=== PATIENT | male | born 1995 | race Hispanic/Latino ===

== ENCOUNTER 2021-02-27 17:14 | Inpatient (IN) | payer OTHER, SELFPAY ==
[2021-02-27 17:51] LABS: Urine Blood Trace-lysed (Negative); Urine Glucose Negative (Negative); Urine Protein Negative (Negative); Urine Specific Gravity <=1.005 (1.005-1.030); Urine pH 5.5 (5.0-7.0)
[2021-02-27] MEDS ORDERED: MORPHINE 2 MG/ML SYR ONE (17:52)
[2021-02-27] MEDS ORDERED: NA CHLORIDE 0.9% 1,000 ML ONE ×3 (17:52→19:08)
[2021-02-27] MEDS ORDERED: ONDANSETRON 4 MG/2 ML VIAL ONE ×2 (17:52→22:03)
[2021-02-27 18:05] LABS: Barbiturates NEGATIVE (NEGATIVE); Benzodiazepines NEGATIVE (NEGATIVE); Cocaine NEGATIVE (NEGATIVE); METHAMPHETAM NEGATIVE (NEGATIVE); Methadone NEGATIVE (NEGATIVE); Opiates NEGATIVE (NEGATIVE); Phencyclidine NEGATIVE (NEGATIVE); THC Cannibis NEGATIVE (NEGATIVE)
[2021-02-27] MEDS ORDERED: ACETAMINOPHEN 500 MG TAB ONE (18:15)
[2021-02-27] MEDS ORDERED: ACETAMINOPHEN 160 MG/5 ML UCUP ONE (18:18)
--- NOTE | 2021-02-27 18:25 | RAD REPORT ---
EXAM DESCRIPTION: CTAbdomen Pelvis W Contrast - 02/27/2021 6:18 pm CLINICAL HISTORY: Abdominal pain. Abd pain;Nausea / vomiting COMPARISON: No comparisons TECHNIQUE: Biphasic CT imaging of the abdomen and pelvis was performed with 100 ml non-ionic IV cont rast. All CT scans are performed using dose optimization technique as appropriate and may include automated exposure control or mA/KV adjustment according to patient size. FINDINGS: The lung bases are clear. The liver, spleen, pancreas, adrenal glands and kidneys are within normal limits. The appendix is dilated to 15 mm and contains an appendicolith. There is moderate surrounding inflamm ation. Tiny air bubbles are seen external to the appendix lumen. There is inflammatory changes seen i n the abdomen with small bowel ileus present. No evidence of significant lymphadenopathy. No suspicious bony findings. IMPRESSION: Perforated acute appendicitis is suspected.
[2021-02-27 18:40] LABS: Absolute Lymphocytes (CBC) 0.5 K/uL (0.7-4.9); Basophils % 0.3 % (0-1.3); Hematocrit 49.7 % (39.6-49.0); Lymphocytes % 5.2 % (15.3-44.8); MPV 7.5 fL (7.6-11.3); RBC Red Blood Cell Count 5.72 M/uL (4.33-5.43)
[2021-02-27 18:55] LABS: Albumin 4.1 g/dL (3.4-5.0); Bilirubin Direct 0.5 mg/dL (0-0.2); Bilirubin Total 1.9 mg/dL (0.2-1.0); Magnesium 1.9 mg/dL (1.8-2.4); Potassium 3.3 mmol/L (3.5-5.1); Protein, Total 8.4 g/dL (6.4-8.2)
[2021-02-27 19:08] LABS: Blood Morphology Comment NOT SEEN (NOT SEEN); Platelet Estimate ADEQ; White Blood Cell Scan OK (OK)
[2021-02-27] MEDS ORDERED: PIPER/TAZO/NS 3.375gm 3.375 GM/100 ML BAG ONE (19:09)
--- NOTE | 2021-02-27 19:15 | EDPHYS ---
Physician Documentation [facility] Name: Nayan Orozco Age: 25 yrs Sex: Male : 1995 Arrival Date: 02/27/2021 Time: 17:16 Bed 17 Private MD: ED Physician Jonh Garcia HPI: 02/27 17:30 This 25 yrs old Male presents to ER via EMS with complaints of Abdominal Pain, cp Nausea/Vomiting/Diarrhea. 17:30 The patient presents with abdominal pain that is diffuse. Onset: The symptoms/episode cp began/occurred 3 day(s) ago, and became worse today. The symptoms radiate to back. Associated signs and symptoms: Pertinent positives: nausea, vomiting, and diarrhea, Pertinent negatives: blood in stools, chest pain, constipation, testicular pain, vomiting blood. The symptoms are described as constant. Severity of pain: in the emergency department the pain is unchanged despite home interventions. Historical: - Allergies: 17:20 No Known Allergies; sv - Home Meds: 17:20 Nexium Oral [Active]; sv - Immunization history:: Adult Immunizations up to date. - Social history:: Smoking status: Patient denies any tobacco usage or history of. ROS: 17:35 Constitutional: Positive for poor PO intake, Negative for body aches. cp 17:35 Eyes: Negative for injury, pain, redness, and discharge. cp 17:35 ENT: Negative for ear pain, sore throat, difficulty swallowing, difficulty handling secretions. 17:35 Cardiovascular: Negative for chest pain, palpitations. 17:35 Respiratory: Negative for cough, shortness of breath, wheezing. 17:35 Abdomen/GI: Positive for abdominal pain, nausea, vomiting, and diarrhea, anorexia, Negative for constipation, hematemesis, black/tarry stool, rectal bleeding. 17:35 Back: Negative for pain at rest, pain with movement. 17:35 : Negative for testicular pain 17:35 Neuro: Negative for altered mental status, headache. 17:35 All other systems are negative. Exam: 17:40 Constitutional: The patient appears in no acute distress, alert, awake, non-toxic, well cp developed, well nourished, uncomfortable. 17:40 Head/Face: Normocephalic, atraumatic. cp 17:40 Eyes: Periorbital structures: appear normal, Conjunctiva: normal, no exudate, no injection, Sclera: no appreciated abnormality, Lids and lashes: appear normal, bilaterally. 17:40 ENT: External ear(s): are unremarkable, Nose: is normal, Mouth: Lips: moist, Oral mucosa: pink and intact, moist, Posterior pharynx: Airway: no evidence of obstruction, patent. 17:40 Neck: ROM/movement: is normal, is supple, without pain, no range of motions limitations, no meningismus. 17:40 Chest/axilla: Inspection: normal, Palpation: is normal, no crepitus, no tenderness. 17:40 Cardiovascular: Rate: tachycardic, Rhythm: regular. cp 17:40 Respiratory: the patient does not display signs of respiratory distress, Respirations: normal, no use of accessory muscles, no retractions, labored breathing, is not present, Breath sounds: are clear throughout, no decreased breath sounds, no stridor, no wheezing. 17:40 Abdomen/GI: Inspection: abdomen appears normal, Bowel sounds: active, all quadrants, Palpation: severe abdominal tenderness, in the right lower quadrant and left lower quadrant, voluntary guarding, is elicited in all quadrants. 17:40 Back: pain, that is moderate, ROM is painful, with extension. Vital Signs: 18:00 BP 125 / 65; Pulse 130; Resp 17; Temp 103.5(O); Pulse Ox 100% on R/A; bw 20:00 BP 138 / 84; Pulse 130; Resp 18; Temp 100.3; Pulse Ox 99% ; sf MDM: 17:20 Patient medically screened. cp 18:00 Differential diagnosis: appendicitis, cholecystitis, Cholelithiasis, diverticulitis, cp pancreatitis, Peritonitis, Ureterolithiasis, urinary tract infection. 19:12 Data reviewed: vital signs, nurses notes, radiologic studies, CT scan, I have discussed cp the patient's presentation/case with the attending Emergency Department Physician;. Physician consultation: Scooby Rogers MD was called at 19:12, was contacted at 19:12, regarding admission, to the medical/surgical unit. patient's condition. 19:15 Counseling: I had a detailed discussion with the patient and/or guardian regarding: the cp historical points, exam findings, and any diagnostic results supporting the discharge/admit diagnosis, lab results, radiology results, the need for further work-up and treatment in the hospital. 02/27 17:22 Order name: Basic Metabolic Panel; Complete Time: 19:05 cp 02/27 19:05 Interpretation: Normal except: NA 134; K 3.3; CL 94; GLUC 126; GFR 79. cp 02/27 17:22 Order name: CBC with Diff; Complete Time: 19:11 cp 02/27 19:05 Interpretation: Normal except: RBC 5.72; HCT 49.7; MPV 7.5; KYMBERLY% 87.0; LYM% 5.2; NEUT A cp 8.6; LYMA 0.5. 02/27 17:22 Order name: Hepatic Function; Complete Time: 19:05 cp 02/27 17:22 Order name: Lipase; Complete Time: 19:05 cp 02/27 17:22 Order name: Magnesium; Complete Time: 19:05 cp 02/27 17:22 Order name: UDS; Complete Time: 18:30 cp 02/27 17:51 Order name: Urine Dipstick-Ancillary; Complete Time: 17:58 EDME 02/27 17:58 Order name: COVID-19 : Document "Date of Symptom Onset" if Symptomatic. 02/27 17:58 Order name: Influenza Screen (a \\T\\ B) cp 02/27 17:58 Order name: [place] Screen Profile 02/27 17:58 Order name: Strep; Complete Time: 19:05 cp 02/27 17:58 Order name: Urine Microscopic Only 02/27 17:22 Order name: CT Abd/Pelvis - IV Contrast Only; Complete Time: 18:30 cp 02/27 17:59 Order name: Urine Microscopic Only EDME 02/27 18:42 Order name: CBC Smear Scan; Complete Time: 19:11 EDMS 02/27 19:01 Order name: Throat Culture EDMS 02/27 19:20 Order name: Basic Metabolic Panel EDMS 02/27 19:20 Order name: Basic Metabolic Panel EDMS 02/27 19:21 Order name: COVID-19/FLU A+B EDMS 02/27 19:21 Order name: CBC with Automated Diff EDMS 02/27 19:21 Order name: CBC with Automated Diff EDMS 02/27 19:21 Order name: Lipase EDMS 02/27 19:21 Order name: Lipase EDMS 02/27 19:21 Order name: Liver (Hepatic) Function EDME 02/27 19:21 Order name: Liver (Hepatic) Function EDMS 02/27 17:22 Order name: IV Saline Lock; Complete Time: 18:18 cp 02/27 17:22 Order name: Labs collected and sent; Complete Time: 18:18 cp 02/27 17:22 Order name: Urine Dipstick-Ancillary (obtain specimen); Complete Time: 17:51 cp 02/27 18:40 Order name: NPO; Complete Time: 18:56 cp 02/27 19:21 Order name: NPO EDMS Administered Medications: 18:17 Drug: NS 0.9% 1000 ml Route: IV; Rate: 1 bolus; Site: left antecubital; bw 19:05 Follow up: Response: No adverse reaction; IV Status: Completed infusion; IV Intake: bw 1000ml 18:17 Drug: morphine 2 mg Route: IVP; Site: left antecubital; bw 19:03 Follow up: Response: No adverse reaction; Pain is decreased bw 18:17 Drug: Tylenol 1000 mg Route: PO; bw 19:03 Follow up: Response: No adverse reaction; Pain is decreased bw 18:18 Drug: Zofran (Ondansetron) 4 mg Route: IVP; Site: left antecubital; bw 19:04 Follow up: Response: No adverse reaction; Nausea is decreased bw 19:01 Drug: Zosyn 3.375 grams Route: IVPB; Infused Over: 60 mins; Site: left antecubital; bw 20:09 Follow up: IV Status: Infusion continued upon admission sf 19:01 Drug: NS 0.9% 1000 ml Route: IV; Rate: 1 bolus; Site: left antecubital; bw 20:00 Follow up: Response: No adverse reaction; IV Status: Completed infusion; IV Intake: sf 1000ml Disposition: 02/27/21 19:14 Hospitalization ordered by Scooby Rogers for Inpatient Admission. Preliminary diagnosis is Acute appendicitis with generalized peritonitis. - Bed requested for Telemetry/MedSurg (Inpatient). - Status is Inpatient Admission. sf - Condition is Stable. - Problem is new. - Symptoms have improved. Addendum: 03/02/2021 19:07 Co-signature as Attending Physician, Jonh Garcia MD. r n Signatures: Dispatcher [employer] EDMalou Muro RN RN Jalyn Diamond RN RN dw Jonh Garcia MD MD rn Page, Corey, PA PA cp Fitzpatrick, Steven, RN RN Анна Lombardi RN RN Corrections: (The following items were deleted from the chart) 02/27 18:34 17:58 CORONAVIRUS ordered. [facility] 18:34 17:58 Influenza Screen (A ordered. [facility] 19:58 19:14 Hospitalization Ordered by Scooby Rogers MD for Inpatient Admission. Preliminary diagnosis is Acute appendicitis with generalized peritonitis. Bed requested for Telemetry/MedSurg (Inpatient). Status is Inpatient Admission. Condition is Stable. Problem is new. Symptoms have improved. 20:10 19:58 02/27/2021 19:14 Hospitalization Ordered by Scooby Rogers MD for Inpatient sf Admission. Preliminary diagnosis is Acute appendicitis with generalized peritonitis. Bed requested for Telemetry/MedSurg (Inpatient). Status is Inpatient Admission. Condition is Stable. Problem is new. Symptoms have improved. dw
--- NOTE | 2021-02-27 19:15 | ER ---
Nurse's Notes [facility] Name: Nayan Orozco Age: 25 yrs Sex: Male : 1995 Arrival Date: 02/27/2021 Time: 17:16 Bed 17 Private MD: Diagnosis: Acute appendicitis with generalized peritonitis Presentation: 02/27 17:17 Chief complaint: EMS states: abd pain and constipation since , saw PCP Sunday and sv prescribed meds, picked them up today. Has been having n/v/d since yesterday and urinary frequency. Risk Assessment: Do you want to hurt yourself or someone else? Patient reports no desire to harm self or others. Onset of symptoms was February 24, 2021. 17:17 Method Of Arrival: EMS: [facility] 17:17 Acuity: JENNIFER 3 sv Historical: - Allergies: 17:20 No Known Allergies; sv - Home Meds: 17:20 Nexium Oral [Active]; sv - Immunization history:: Adult Immunizations up to date. - Social history:: Smoking status: Patient denies any tobacco usage or history of. Screenin:12 Abuse screen: Denies threats or abuse. Nutritional screening: No deficits noted. bw Tuberculosis screening: No symptoms or risk factors identified. Fall Risk None identified. Assessment: 18:12 Pain: Complains of pain in abdomen. Neuro: No deficits noted. Cardiovascular: No bw deficits noted. Respiratory: No deficits noted. GI: Bowel sounds present X 4 quads. Abd is soft and non tender. : No deficits noted. EENT: No deficits noted. Derm: No deficits noted. 18:32 Reassessment: Patient appears in no apparent distress at this time. Patient and/or bw family updated on plan of care and expected duration. Pain level reassessed. Patient is alert, oriented x 3, equal unlabored respirations, skin warm/dry/pink. Vital Signs: 18:00 BP 125 / 65; Pulse 130; Resp 17; Temp 103.5(O); Pulse Ox 100% on R/A; bw 20:00 BP 138 / 84; Pulse 130; Resp 18; Temp 100.3; Pulse Ox 99% ; sf ED Course: 17:16 Patient arrived in ED. sv 17:17 Pedro Phillips PA is PHCP. cp 17:17 Jonh Garcia MD is Attending Physician. cp 17:20 Triage completed. sv 17:20 Arm band placed on. sv 17:30 Анна Lombardi RN is Primary Nurse. bw 17:30 Urine collected: clean catch specimen, clear, robb colored, Legal drug screen obtained jp3 per protocol. 18:12 Patient has correct armband on for positive identification. Call light in reach. Side bw rails up X 1. Pulse ox on. NIBP on. Warm blanket given. 18:12 No provider procedures requiring assistance completed. Inserted saline lock: 20 gauge bw in left. 18:18 CT Abd/Pelvis - IV Contrast Only In Process Unspecified. EDMS 18:36 COVID swab sent to lab. Flu and/or RSV swab sent to lab. Strep swab sent to lab. jp3 18:36 Urine Microscopic Only Sent. jp3 18:37 Influenza Screen (a \\T\\ B) Sent. sv 18:37 COVID-19 : Document "Date of Symptom Onset" if Symptomatic. Sent. sv 19:07 Primary Nurse role handed off by Анна Lombardi RN sf 19:07 Cole Campos RN is Primary Nurse. sf 19:13 Scooby Rogers MD is Hospitalizing Provider. cp 20:07 Patient admitted, IV remains in place. sf Administered Medications: 18:17 Drug: NS 0.9% 1000 ml Route: IV; Rate: 1 bolus; Site: left antecubital; bw 19:05 Follow up: Response: No adverse reaction; IV Status: Completed infusion; IV Intake: bw 1000ml 18:17 Drug: morphine 2 mg Route: IVP; Site: left antecubital; bw 19:03 Follow up: Response: No adverse reaction; Pain is decreased bw 18:17 Drug: Tylenol 1000 mg Route: PO; bw 19:03 Follow up: Response: No adverse reaction; Pain is decreased bw 18:18 Drug: Zofran (Ondansetron) 4 mg Route: IVP; Site: left antecubital; bw 19:04 Follow up: Response: No adverse reaction; Nausea is decreased bw 19:01 Drug: Zosyn 3.375 grams Route: IVPB; Infused Over: 60 mins; Site: left antecubital; bw 20:09 Follow up: IV Status: Infusion continued upon admission sf 19:01 Drug: NS 0.9% 1000 ml Route: IV; Rate: 1 bolus; Site: left antecubital; bw 20:00 Follow up: Response: No adverse reaction; IV Status: Completed infusion; IV Intake: sf 1000ml Intake: 19:05 IV: 1000ml; Total: 1000ml. bw 20:00 IV: 1000ml; Total: 2000ml. sf Outcome: 19:14 Decision to Hospitalize by Provider. cp 20:07 Admitted to OR accompanied by nurse, via wheelchair, Report called to makenzie Avina RN 20:07 Condition: stable 20:07 Instructed on the need for admit. 20:10 Patient left the ED. sf Signatures: Dispatcher [employer] EDMalou Muro RN RN sv Page, Corey, PA PA cp Pisarski, Jacob jp3 Fitzpatrick, Steven, RN RN sf Webb, Bethany, RN RN bw Corrections: (The following items were deleted from the chart) 20:11 20:07 Admitted to OR accompanied by nurse, via stretcher, Report called to BARRIE Keen
[2021-02-27] MEDS ORDERED: MORPHINE 4 MG/ML SYR IV PRN (19:19)
[2021-02-27] MEDS ORDERED: ACETAMINOPHEN 500 MG TAB PO PRN (19:19)
[2021-02-27] MEDS ORDERED: ONDANSETRON 4 MG/2 ML VIAL IV PRN (19:19)
[2021-02-27 19:20] LABS: SARS-COV-2 RT PCR NEGATIVE (NEGATIVE)
[2021-02-27] MEDS ORDERED: D5 0.45 NS 1,000 ML IV SCH (20:00)
[2021-02-27] MEDS ORDERED: SUCCINYLCHOLINE 20 MG/ML (10 ML) IV ONE (20:25)
[2021-02-27] MEDS ORDERED: FENTANYL CITR 100 MCG/2 ML ONE ×3 (20:54→22:48)
[2021-02-27] MEDS ORDERED: propofoL 200 MG/20 ML VIAL IV ONE (20:54)
[2021-02-27] MEDS ORDERED: MIDAZOLAM HCL 2 MG/2 ML INJ ONE (20:54)
[2021-02-27] MEDS ORDERED: ROCURONIUM 50 MG/5 ML VIAL IV ONE (20:55)
--- NOTE | 2021-02-27 20:55 | P.HP ---
Date of Service: 02/27/21 PC: This 25-year-old male presents emergency room with severe right lower quadrant abdominal pain for diagnosis and treatment. HPC: Patient 1st noticed he was having pain on . Has some mild right lower quadrant abdominal pain at that time. Pain was off and on until he states this morning when he went to the restroom. Shortly thereafter had excruciating abdominal pain and was brought to the emergency PMH: Negative PSHx: Negative SOC: Denies any allergies SYS REVIEW: No cough, wheeze, shortness of breath. No chest pain or palpitations. No urinary complaints O/E awake alert vital signs are stable HEENT: Within normal limits Chest: Air entry equal bilaterally ABD: Marked tenderness with guarding and rebound in the right lower quadrant LOCO: Intact DATA: Cell count was normal, however CT scan supports clinical diagnosis of acute abdomen with most likely a ruptured appendix IMPRESSION: Acute abdomen PLAN: I will take him to the operating room for laparoscopic possible open appendectomy. The risks of this procedure have been discussed. The possibility of bleeding, infection, injury to bowel and surrounding structures were outlined. The possible need for further surgeries and procedures development of abscesses and wound infections were explained. He and his family understand, an d want to proceed.
[2021-02-27] MEDS ORDERED: Ringers Lactate 1,000 ML IV SCH (21:00)
[2021-02-27] MEDS ORDERED: GLYCOPYRROLATE 0.2 MG/ML SYR ONE ×2 (21:33→21:34)
[2021-02-27] MEDS ORDERED: NEOSTIGMINE 1 MG/ML -5 ML ONE (21:33)
--- NOTE | 2021-02-27 22:08 | P.OP ---
Preoperative diagnosis: Acute abdomen with appendicitis Postoperative diagnosis: The same with a ruptured appendicitis Primary procedure: Laparoscopic appendectomy Secondary procedure: Drainage of intra-abdominal abscess Other procedure(s): Lyses of adhesion Anesthesia: General Estimated blood loss: Than 10 cc Specimen: 1 appendix Operative Technique: The patient brought to the operating room placed supine on the table. After the induction of adequate general endotracheal anesthesia, the area of the abdomen was prepped with a DuraPrep solution, and he was draped in usual aseptic manner a subumbilical incision was made. This was brought down through the subcutaneous tissue. The Visiport was now used to enter the peritoneal cavity and created pneumoperitoneum to approximately 12 mm of mercury. Under direct vision a 5 mm trocar was placed in the right upper quadrant, and another in the lower midline with the patient placed in reverse Trendelenburg into the right we could see that there process in the right lower quadrant of the abdomen. We could see some in the right pericolic gutter. This was aspirated using towards the right omentum was gently mobilized off of this inflammatory phlegmon. We could now see the appendix adherent to the anterior sidewall and lateral sidewall of the pelvis this area. There was an obvious appendix through which there was purulent material draining. They felt was a large stone at the base of the appendix junction with the cecum changing our inner 10 mm trocar to a 12 and placed in the 5 mm camera in the right upper portion of the abdomen we were able to isolate the junction of the cecum with the appendix. This was was a lot of inflammatory exudate both chronic and acute in this area. The base able to place of the appendix and fired the instrument. The remains of the appendix was perforation were now elevated. The vascular pedicle was then taken down using blunt and sharp dissection. We tried to place a linear Stapler across the base however we could not adequately clear the tips instrument from those sidewall of the pelvis hence we is a laparoscopic clips to isolate this area. The appendix n ow having me detached was placed into an Endo-Catch and brought out through the umbilical trocar site. Right lower solution. This was done until the effluent was clear. The patient was taken out of Trendelenburg and a Eddie-Keating drain was placed in the right lower quadrant. This brought trocar site. The drain was sutured in place. At this point the omentum was allowed to plot down onto the area had previous been adherent 2. The bowel was inspected no other gross pathology was normal. At this point the umbilical trocar site was now approximated with 303 interrupted sutures of PDS placed using the Endo Close. At the end of the procedure he was in a stable condition when sent to the recover room. All the trocars had been removed, the pneumoperitoneum collapse, and the skin approximated with sweetie. Complications: None Drain(s): CARYN drain
[2021-02-27] MEDS ORDERED: KETOROLAC 30 MG/ML INJ ONE (22:48)
[2021-02-27] MEDS ORDERED: MEPERIDINE HCL 25 MG/ML SYR ONE (22:57)
[2021-02-27 23:13] VITALS: BMI 22.6
[2021-02-27] MEDS: Ringers Lactate 1,000 ML IV SCH (23:14)
[2021-02-28] MEDS: PIPER/TAZO/NS 3.375gm 3.375 GM/100 ML BAG IVPB SCH ×3 (00:58→16:35)
[2021-02-28 05:44] LABS: Absolute Lymphocytes (CBC) 0.3 K/uL (0.7-4.9); Basophils % 0.1 % (0-1.3); Hematocrit 41.5 % (39.6-49.0); Lymphocytes % 4.4 % (15.3-44.8); MPV 7.4 fL (7.6-11.3); RBC Red Blood Cell Count 4.77 M/uL (4.33-5.43)
[2021-02-28 05:55] LABS: BUN Blood Urea Nitrogen 10 mg/dL (7-18); Bicarbonate 29 mmol/L (21-32); Glucose Level 94 mg/dL (74-106); Potassium 3.8 mmol/L (3.5-5.1); Sodium Level 136 mmol/L (136-145)
[2021-02-28] MEDS: Ringers Lactate 1,000 ML IV SCH (08:11)
[2021-02-28] MEDS: MORPHINE 4 MG/ML SYR IV PRN ×2 (08:12→12:25)
[2021-02-28 09:02] LABS: Blood Morphology Comment NOT SEEN (NOT SEEN); Platelet Estimate DECR; Platelets, Giant PRESENT
--- NOTE | 2021-02-28 13:48 | P.PN ---
Date of Service: 02/28/21 S: Patient states he feels somewhat better today, has been ambulating, but still has some right lower quadrant soreness were he was operated on. O: Vital signs are stable, did have a critical value on his lab work today, but is on antibiotics at the moment and not running any fevers or chills. A: Surgically stable, wound is clean. P, continue IV antibiotics, will most likely Dc CARYN in a.m.. Clear liquid diet for today. Encourage patient ambulate and use incentive spirometer.
[2021-02-28] MEDS ORDERED: D5 0.45 NS 1,000 ML IV SCH (15:00)
[2021-02-28] MEDS ORDERED: NA CHLORIDE 0.9% 500 ML IV ONE ×2 (15:00→23:01)
[2021-02-28] MEDS: HYDROCODONE/APAP 7.5/325 MG TAB PO PRN (16:24)
[2021-02-28] MEDS: D5.45NS W/KCL 20MEQ 20 MEQ/1,000 ML BAG IV SCH (23:23)
[2021-02-28] MEDS: METRONIDAZOLE 500mg IVPB 500 MG/100 ML BAG IV SCH (23:24)
[2021-03-01] MEDS: METRONIDAZOLE 500mg IVPB 500 MG/100 ML BAG IV SCH ×3 (01:00→16:42)
[2021-03-01] MEDS: PIPER/TAZO/NS 3.375gm 3.375 GM/100 ML BAG IVPB SCH ×3 (01:30→17:48)
[2021-03-01] MEDS: HYDROCODONE/APAP 7.5/325 MG TAB PO PRN ×3 (04:59→21:52)
[2021-03-01 06:01] LABS: Absolute Lymphocytes (CBC) 0.4 K/uL (0.7-4.9); Basophils % 0.3 % (0-1.3); Hematocrit 40.9 % (39.6-49.0); Lymphocytes % 5.2 % (15.3-44.8); MPV 6.9 fL (7.6-11.3)
[2021-03-01 06:22] LABS: BUN Blood Urea Nitrogen 8 mg/dL (7-18); Bicarbonate 28 mmol/L (21-32); Glucose Level 114 mg/dL (74-106); Potassium 3.7 mmol/L (3.5-5.1); Sodium Level 133 mmol/L (136-145)
[2021-03-01] MEDS: D5.45NS W/KCL 20MEQ 20 MEQ/1,000 ML BAG IV SCH ×3 (07:00→23:00)
--- NOTE | 2021-03-01 15:39 | P.PN ---
Date of Service: 03/01/21 S: States he is feeling well today. Still having some soreness when he ambulates. Tolerating full liquids. O vital signs are stable the patient has been persistently tachycardic since his surgery. He was given fluids last night. He has generous urine output. The wounds are clean, minimal in CARYN drain. A: Surgically patient appears to be stable, but is persistently tachycardic. Does not show signs of sepsis. P: Continue with current surgical management, will Dc CARYN drain today. I have asked the hospitalist to review and see if this tachycardia and mild hypertension needs to be addressed.
--- NOTE | 2021-03-01 15:43 | P.CNS ---
Date of Consult: 03/01/21 Reason for Consult: Tachycardia Requesting Physician: Scooby Rogers Primary Care Provider: Dr. Murphy Chief Complaint: Abdominal pain History of Present Illness: 25-year-old male presented to emergency room with acute abdomen. Patient found to have ruptured appendix. Surgery performed laparoscopic appendectomy with lysis of adhesions and drainage of intra-abdominal abscess. Patient has done well postoperatively. Patient alert, cooperative. I was consulted due to his tachycardia. Patient given multiple rounds of IV fluids. Patient does not appear septic. Spoke with surgery concerning patient. Blood pressure slightly elevated. Patient reports no chest pain, shortness of breath. Patient reports history of ADHD and GERD. Allergies No Known Allergies Allergy (Verified 02/27/21 22:06) Home Medications: Esomeprazole Mag Trihydrate [Nexium] 20 mg PO DAILY 02/27/21 - Past Medical/Surgical History Diabetic: No -: GERD -: ADHD -: Laparoscopic appendectomy Psychosocial/ Personal History: Patient lives at home - Family History Father Family History: Reviewed- Non-Contributory - Social History Smoking Status: Unknown if ever smoked Alcohol use: No CD- Drugs: No Caffeine use: No Place of Residence: Home Physical Examination Temp Pulse Resp BP Pulse Ox 99.9 F 141 H 18 142/84 H 99 03/01/21 12:00 03/01/21 12:00 03/01/21 13:35 03/01/21 12:00 03/01/21 13:35 General: Alert, In no apparent distress, Oriented x3, Cooperative HEENT: Atraumatic, Normocephalic, Mucous membr. moist/pink Neck: Supple Respiratory: Clear to auscultation bilaterally, Normal air movement Cardiovascular: Abnormal pulses (Sinus tachycardia) Gastrointestinal: Normal bowel sounds, Other (Abdominal binder in place. Drain also in place. Still with postoperative pain noted.) Musculoskeletal: No tenderness, No warmth Integumentary: No tenderness/swelling Neurological: Normal speech, Normal strength at 5/5 x4 extr, Normal tone, Normal affect Conclusions/Impression: Impression: Acute abdomen secondary to ruptured appendix status post laparoscopic appendectomy, drainage of intra-abdominal abscess, and lysis of adhesions Sinus tachycardia GERD ADHD Plan: Acute abdomen secondary to ruptured appendix status post laparoscopic appendectomy, drainage of intra-abdominal abscess, and lysis of adhesions: Spoke with surgery. Continue antibiotics. To new IV fluids. Patient given multiple doses of boluses last night. Patient doing well postoperatively. No passage of stool yet. Tolerating current diet. Encourage ambulation. Encourage incentive spirometer. Will monitor closely. Will address tachycardia. Obtain EKG. Recheck blood pressure and heart rate. Will consider giving low-dose metoprolol. Sinus tachycardia: We will check manual blood pressure and heart rate. Will consider low-dose metoprolol. Will monitor closely. EKG pending. GERD: Patient takes Nexium at home. We will start Protonix. ADHD: Patient reports taking medication in the past. No indication of patient taking this medication at this time. Time Spent Managing Pts care (In Minutes): 55
--- NOTE | 2021-03-01 18:10 | RAD REPORT ---
EXAM DESCRIPTION: RAD - Chest Pa And Lat (2 Views) - 03/01/2021 6:01 pm CLINICAL HISTORY: post op fever COMPARISON: CT abdomen and pelvis February 27 TECHNIQUE: Frontal and lateral views of the chest were obtained. FINDINGS: The lungs are normal volume. Small bilateral pleural effusions are present with minimal sugey ng base atelectasis. An acute infectious or aspiration pneumonia not identified. Heart size is normal and central vasculature is within normal limits. No pneumothorax. No acute b leslie finding noted. No aortic abnormality. IMPRESSION: Small bilateral pleural effusions with minimal lung base atelectasis. No finding for aspiration or infectious pneumonia.
[2021-03-02] MEDS: METRONIDAZOLE 500mg IVPB 500 MG/100 ML BAG IV SCH ×3 (00:36→16:49)
[2021-03-02] MEDS: PIPER/TAZO/NS 3.375gm 3.375 GM/100 ML BAG IVPB SCH ×3 (00:37→16:49)
[2021-03-02] MEDS: HYDROCODONE/APAP 7.5/325 MG TAB PO PRN ×3 (05:44→21:24)
[2021-03-02] MEDS: D5.45NS W/KCL 20MEQ 20 MEQ/1,000 ML BAG IV SCH (05:47)
[2021-03-02] MEDS: PANTOPRAZOLE 40 MG INJ IVP SCH (09:00)
--- NOTE | 2021-03-02 10:01 | P.PN ---
Subjective Date of Service: 03/02/21 Primary Care Provider: Dr. Murphy Chief Complaint: Abdominal pain Subjective: Improving, Other (Patient reports no bowel movement yet. Patient stable sitting comfortably.) Physical Examination - Vital Signs Temperature: 99.2 F Blood Pressure: 140/75 Pulse: 124 Respirations: 18 Pulse Ox (%): 98 - Studies Microbiology Data (last 24 hrs): 02/27/21 18:24 Throat Culture & Sensitivity - Final NORMAL UPPER RESPIRATORY DEBORAH GROWN. Assessment & Plan Discharge Plan: Home Plan to discharge in: 48 Hours Physician Review Additional Text: Physical exam: Patient alert, cooperative. No significant distress. Patient sitting at bedside. Heart: Sinus tachycardia Lungs: Slightly decreased at the bases Abdomen: Soft. Postsurgical pain noted. Postsurgical changes noted. Extremities: Good range of motion. No focal deficits. No significant edema. Impression: Acute abdomen secondary to ruptured appendix status post laparoscopic appendectomy, drainage of intra-abdominal abscess, and lysis of adhesions Sinus tachycardia likely related to small bilateral pleural effusions with lung atelectasis GERD ADHD Plan: Acute abdomen secondary to ruptured appendix status post laparoscopic appendecto my, drainage of intra-abdominal abscess, and lysis of adhesions: Patient on full liquid diet. Still no bowel movement. Spoke with surgery yesterday. Encourage ambulation. Encourage incentive spirometer. Patient urinating appropriately. Patient still on positive side with fluids. X-ray shows small bilateral pleural effusions with lung atelectasis. Will hold IV fluids. Will discuss with surgery. Continue with above recommendations. Continue IV antibiotic therapy. Will monitor closely. Continue with surgery recommendations. Sinus tachycardia likely related to small bilateral pleural effusions with lung atelectasis : We will hold IV fluids for now. Encourage ambulation. Encourage incentive spirometer. Recheck chest x-ray tomorrow. GERD: Patient takes Nexium at home. Continue Protonix. ADHD: Patient reports taking medication in the past. No indication of patient taking this medication at this time. Time Spent Managing Pts Care (In Minutes): 55
[2021-03-02 14:26] LABS: Absolute Lymphocytes (CBC) 0.6 K/uL (0.7-4.9); Basophils % 0.6 % (0-1.3); Hematocrit 40.6 % (39.6-49.0); Lymphocytes % 7.5 % (15.3-44.8); MPV 6.9 fL (7.6-11.3); RBC Red Blood Cell Count 4.71 M/uL (4.33-5.43)
--- NOTE | 2021-03-02 16:01 | P.PN ---
Date of Service: 03/02/21 S: Patient up ambulating in the hallway. CC still has muscle soreness. Better effort on incentive spirometry. athletic monitor in place. O: Remains tachycardic. Clinically looks well are clean. A: Surgically stable, still has mild postoperative ileus. P: I will give the patient some mineral tonight. I anticipate that he should start having some bowel movements in the a.m.. If he remains afebrile may be discharged from a surgical point of view on p.o. antibiotics and pain medicine. This will depend O course on the hospitalist evaluation of his tachycardia. Otherwise patient remained stable, diet has been advanced, and will review him again in a.m..
[2021-03-02] MEDS ORDERED: MINERAL OIL 30 ML UCUP PO ONE (17:00)
[2021-03-02] MEDS: SODIUM CHLORIDE 0.9% 10ML INJ IV PRN (21:25)
[2021-03-03] MEDS: METRONIDAZOLE 500mg IVPB 500 MG/100 ML BAG IV SCH ×3 (00:23→17:33)
[2021-03-03] MEDS: PIPER/TAZO/NS 3.375gm 3.375 GM/100 ML BAG IVPB SCH ×3 (01:35→18:16)
[2021-03-03] MEDS: HYDROCODONE/APAP 7.5/325 MG TAB PO PRN ×3 (03:46→20:49)
[2021-03-03] MEDS: SODIUM CHLORIDE 0.9% 10ML INJ IV PRN (08:37)
[2021-03-03] MEDS: PANTOPRAZOLE 40 MG INJ IVP SCH (08:37)
--- NOTE | 2021-03-03 08:49 | RAD REPORT ---
EXAM DESCRIPTION: RAD - Chest Pa And Lat (2 Views) - 03/03/2021 4:51 am CLINICAL HISTORY: Follow-up pleural effusion and atelectasis Chest pain. COMPARISON: Chest Pa And Lat (2 Views) dated 03/01/2021; Abdomen Pelvis W Contrast dated 02/27/2021 FINDINGS: The lungs are clear. Small pleural effusions bilaterally. The heart is normal in size. No displaced fractures.
[2021-03-03 14:55] LABS: Thyroid Stimulating Hormone 0.935 uIU/mL (0.360-3.740)
--- NOTE | 2021-03-03 16:17 | P.PN ---
Subjective Date of Service: 03/03/21 Primary Care Provider: Dr. Murphy Chief Complaint: Abdominal pain Subjective: Improving, Doing well Physical Examination - Vital Signs Temperature: 98.5 F Blood Pressure: 144/83 Pulse: 109 Respirations: 17 Pulse Ox (%): 100 Assessment & Plan Discharge Plan: Home Plan to discharge in: 24 Hours Physician Review Additional Text: Physical exam: Patient alert, cooperative. No significant distress. Patient sitting at bedside. Heart: Sinus tachycardia improved Lungs: Slightly decreased at the bases Abdomen: Soft. Postsurgical pain noted. Postsurgical changes noted. Extremities: Good range of motion. No focal deficits. No significant edema. Impression: Acute abdomen secondary to ruptured appendix status post laparoscopic appendectomy, drainage of intra-abdominal abscess, and lysis of adhesions Sinus tachycardia likely related to small bilateral pleural effusions with lung atelectasis GERD ADHD Plan: Acute abdomen secondary to ruptured appendix status post laparoscopic appendectomy, drainage of intra-abdominal abscess, and lysis of adhesions: Patient continues to improve. Encourage ambulation. Encourage incentive spirometer. X-ray shows improvement in bilateral pleural effusions. Patient no longer on IV fluids. Will discuss with surgery. Anticipate likely discharge today. Okay to go home from a medical standpoint. Sinus tachycardia likely related to small bilateral pleural effusions with lung atelectasis : Sinus tachycardia improved. Continue incentive spirometer. Chest x-ray shows improvement. GERD: Patient takes Nexium at home. Continue Protonix. ADHD: Patient reports taking medication in the past. No indication of patient taking this medication at this time. Time Spent Managing Pts Care (In Minutes): 55
--- NOTE | 2021-03-03 20:52 | P.PN ---
Subjective Date of Service: 03/03/21 Primary Care Provider: Dr. Murphy Chief Complaint: Abdominal pain Subjective: Other (Patient stable at this time. Spoke with surgery. Plan is for discharge tomorrow.) Physical Examination - Vital Signs Temperature: 98.5 F Blood Pressure: 144/83 Pulse: 109 Respirations: 17 Pulse Ox (%): 100 Assessment & Plan Physician Review Additional Text: Physical exam: Patient alert, cooperative. No significant distress. Patient sitting at bedside. Heart: Sinus tachycardia improved Lungs: Slightly decreased at the bases Abdomen: Soft. Postsurgical pain noted. Postsurgical changes noted. Extremities: Good range of motion. No focal deficits. No significant edema. Impression: Acute abdomen secondary to ruptured appendix status post laparoscopic appendectomy, drainage of intra-abdominal abscess, and lysis of adhesions Sinus tachycardia likely related to small bilateral pleural effusions with lung atelectasis GERD ADHD Plan: Acute abdomen secondary to ruptured appendix status post laparoscopic appendectomy, drainage of intra-abdominal abscess, and lysis of adhesions: Patient continues to improve. Encourage ambulation. Encourage incentive spirometer. X-ray shows improvement in bilateral pleural effusions. Patient no longer on IV fluids. Will discuss with surgery. Anticipate likely discharge today. Okay to go home from a medical standpoint. Sinus tachycardia likely related to small bilateral pleural effusions with lung atelectasis : Sinus tachycardia improved. Continue incentive spirometer. Chest x-ray shows improvement. GERD: Patient takes Nexium at home. Continue Protonix. ADHD: Patient reports taking medication in the past. No indication of patient taking this medication at this time.
[2021-03-04] MEDS: PIPER/TAZO/NS 3.375gm 3.375 GM/100 ML BAG IVPB SCH ×2 (00:09→09:10)
[2021-03-04] MEDS: METRONIDAZOLE 500mg IVPB 500 MG/100 ML BAG IV SCH ×2 (00:09→09:10)
[2021-03-04] MEDS: HYDROCODONE/APAP 7.5/325 MG TAB PO PRN ×2 (04:57→11:15)
[2021-03-04] MEDS: PANTOPRAZOLE 40 MG INJ IVP SCH (09:00)
--- NOTE | 2021-03-04 09:23 | P.DS ---
Admission Date: 02/27/21 Discharge Date: 03/04/21 Primary Care Provider: Dr. Murphy Disposition: ROUTINE DISCHARGE Discharge Condition: GOOD Reason for Admission: Abdominal pain Consultations: Surgery-Dr. Rogers Procedures: COVID: Negative CT scan: FINDINGS: The lung bases are clear. The liver, spleen, pancreas, adrenal glands and kidneys are within normal limits. The appendix is dilated to 15 mm and contains an appendicolith. There is moderate surrounding inflammation. Tiny air bubbles are seen external to the appendix lumen. There is inflammatory changes seen in the abdomen with small bowel ileus present. No evidence of significant lymphadenopathy. No suspicious bony findings. IMPRESSION: Perforated acute appendicitis is suspected. CXR: FINDINGS: The lungs are normal volume. Small bilateral pleural effusions are present with minimal lung base atelectasis. An acute infectious or aspiration pneumonia not identified. Heart size is normal and central vasculature is within normal limits. No pneumothorax. No acute bony finding noted. No aortic abnormality. IMPRESSION: Small bilateral pleural effusions with minimal lung base atelectasis. No finding for aspiration or infectious pneumonia. Follow up CXR: COMPARISON: Chest Pa And Lat (2 Views) dated 03/01/2021; Abdomen Pelvis W Contrast dated 02/27/2021 FINDINGS: The lungs are clear. Small pleural effusions bilaterally. The heart is normal in size. No displaced fractures. Surgery: Date: 02/27/21 22:03 Preoperative diagnosis: Acute abdomen with appendicitis Postoperative diagnosis: The same with a ruptured appendicitis Primary procedure: Laparoscopic appendectomy Secondary procedure: Drainage of intra-abdominal abscess Other procedure(s): Lyses of adhesion Anesthesia: General Estimated blood loss: Than 10 cc Specimen: 1 appendix Pathology: Acute appendicitis with probable perforation, fecaliths identified. Medical Problem List: Acute abdomen secondary to ruptured appendix status post laparoscopic appendectomy, drainage of intra-abdominal abscess, and lysis of adhesions Sinus tachycardia likely related to small bilateral pleural effusions with lung atelectasis GERD ADHD Brief History of Present Illness: 25-year-old male presented to emergency room with acute abdomen. Patient found to have ruptured appendix. Surgery performed laparoscopic appendectomy with lysis of adhesions and drainage of intra-abdominal abscess. Patient has done well postoperatively. Patient alert, cooperative. I was consulted due to his tachycardia. Patient given multiple rounds of IV fluids. Patient does not appear septic. Spoke with surgery concerning patient. Blood pressure slightly elevated. Patient reports no chest pain, shortness of breath. Patient reports history of ADHD and GERD. Hospital Course: Patient presented with patient presented with acute abdominal pain secondary to ruptured appendicitis. Patient was seen and evaluated by Surgery. Surgical intervention was immediately required. Patient had a laparoscopic appendectomy with drainage of intra-abdominal abscess and lysis of adhesions. Patient did well postoperatively. Patient had some sinus tachycardia. Small bilateral pleural effusions noted with lung atelectasis. This improved. Patient did not require any oxygen. Patient ambulating well. Patient tolerating soft diet. No significant abdominal pain, nausea or vomiting noted. Tachycardia improved. Heart rate in the low 100s. No intervention required. At discharge the patient will continue with Levaquin 500 mg daily and Flagyl 500 mg 3 times a day for 5 more days. Patient will continue with lactobacillus twice daily for at least 10 more days. Patient will follow up with surgery on Sunday of next week to follow-up his hospitalization. No heavy lifting, pushing or pulling recommended at this time. Patient will continue with a soft GI diet. Education on appendicitis provided. Patient will continue with incentive spirometer and ambulation. Recommend follow-up with PCP to monitor and follow-up this hospitalization. Recommend recheck chest x-ray in 2 to 4 weeks to monitor resolution of pleural effusion. Patient with history of GERD. At discharge patient may continue with Nexium at discharge. Vital Signs/Physical Exam: Temp Pulse Resp BP Pulse Ox 98.5 F 109 H 17 144/83 H 100 03/04/21 09:21 03/04/21 09:21 03/04/21 09:21 03/04/21 09:21 03/04/21 09:21 General: Alert, In no apparent distress, Oriented x3, Cooperative HEENT: Atraumatic Neck: Supple Respiratory: Clear to auscultation bilaterally Cardiovascular: Abnormal pulses (Mild sinus tachycardia rate 103) Gastrointestinal: Normal bowel sounds, Soft and benign, Non-distended, No tenderness, No masses, No rebound, No guarding, Other (Postsurgical changes noted.) Musculoskeletal: No erythema, No tenderness, No warmth Integumentary: No tenderness/swelling Neurological: Normal speech, Normal strength at 5/5 x4 extr, Normal tone, Normal affect Laboratory Data at Discharge: WBC 7.50 K/uL (4.3-10.9) 03/02/21 14:12 Hgb 13.8 g/dL (13.6-17.9) 03/02/21 14:12 Hct 40.6 % (39.6-49.0) 03/02/21 14:12 Plt Count 204 K/uL (152-406) 03/02/21 14:12 Sodium 133 mmol/L (136-145) L 03/01/21 05:41 Potassium 3.7 mmol/L (3.5-5.1) 03/01/21 05:41 BUN 8 mg/dL (7-18) 03/01/21 05:41 Creatinine 0.88 mg/dL (0.55-1.3) 03/01/21 05:41 Glucose 114 mg/dL (74-106) H 03/01/21 05:41 Magnesium 1.9 mg/dL (1.8-2.4) 02/27/21 17:52 Total Bilirubin 1.9 mg/dL (0.2-1.0) H 02/27/21 17:52 AST 10 U/L (15-37) L 02/27/21 17:52 ALT 20 U/L (12-78) 02/27/21 17:52 Alkaline Phosphatase 98 U/L (45-117) 02/27/21 17:52 Lipase 50 U/L (73-393) L 02/27/21 17:52 Home Medications: Esomeprazole Mag Trihydrate [Nexium] 20 mg PO DAILY 02/27/21 Lactobacillus Acidophilus [Acidophilus Lactobacilli] 1 each PO BID #20 capsule 03/04/21 Levofloxacin [Levaquin] 500 mg PO DAILY #5 tablet 03/04/21 metroNIDAZOLE [Flagyl] 500 mg PO Q8H #15 tablet 03/04/21 New Medications: Lactobacillus Acidophilus [Acidophilus Lactobacilli] 1 each PO BID #20 capsule metroNIDAZOLE [Flagyl] 500 mg PO Q8H #15 tablet Levofloxacin [Levaquin] 500 mg PO DAILY #5 tablet Physician Discharge Instructions: Patient presented with patient presented with acute abdominal pain secondary to ruptured appendicitis. Patient was seen and evaluated by Surgery. Surgical intervention was immediately required. Patient had a laparoscopic appendectomy with drainage of intra-abdominal abscess and lysis of adhesions. Patient did well postoperatively. Patient had some sinus tachycardia. Small bilateral pleural effusions noted with lung atelectasis. This improved. Patient did not require any oxygen. Patient ambulating well. Patient tolerating soft diet. No significant abdominal pain, nausea or vomiting noted. Tachycardia improved. Heart rate in the low 100s. No intervention required. At discharge the patient will continue with Levaquin 500 mg daily and Flagyl 500 mg 3 times a day for 5 more days. Patient will continue with lactobacillus twice daily for at least 10 more days. Patient will follow up with surgery on Sunday of next week to follow-up his hospitalization. No heavy lifting, pushing or pulling recommended at this time. Patient will continue with a soft GI diet. Education on appendicitis provided. Patient will continue with incentive spirometer and ambulation. Recommend follow-up with PCP to monitor and follow-up this hospitalization. Recommend recheck chest x-ray in 2 to 4 weeks to monitor resolution of pleural effusion. Patient with history of GERD. At discharge patient may continue with Nexium at discharge. Diet: GI soft Activity: Ad lemuel Followup: NONE,NONE [Primary Care Provider] - Time spent managing pt's care (in minutes): 55
[2021-03-04 10:16] VITALS: O2SAT 100
[2021-03-04 12:07] VITALS: BP 146/76; TEMP 98.3
== END 2021-03-04 11:30 | disposition home or self-care (01) | DRG 339 ==
LOC: ER 17:14 → ERHOLD 19:49 → 2ND 21:50
PROVIDERS: ADMIT Surgery; ATTEND Surgery
PROC: 0DTJ4ZZ Resection of Appendix, Percutaneous Endoscopic Approach (ICD-10-PCS; principal; 2021-02-27 20:00)
DX: K35.32 Acute appendicitis with perforation, localized peritonitis, and gangrene, without abscess (principal); J90 Pleural effusion, not elsewhere classified; J98.11 Atelectasis; K91.89 Other postprocedural complications and disorders of digestive system; K56.7 Ileus, unspecified; J95.89 Other postprocedural complications and disorders of respiratory system, not elsewhere classified; K38.1 Appendicular concretions; K21.9 Gastro-esophageal reflux disease without esophagitis; R00.0 Tachycardia, unspecified; F90.9 Attention-deficit hyperactivity disorder, unspecified type; Y83.6 Removal of other organ (partial) (total) as the cause of abnormal reaction of the patient, or of later complication, without mention of misadventure at the time of the procedure
CPT/HCPCS: 0240U; 36415; 71046; 74177; 80048; 80076; 80307; 81003; 82565; 83690; 83735; 84439; 84443; 85025; 86308; 87070; 87081; 88304; 93005; 94010; 96361; 96365; 96375; 99285; C9113; J0330; J2175; J2250; J2270; J2405; J2543; J2704; J2710; J3010; J7030; J7040; J7120; J7799; Q9967